=== PATIENT | male | born 1945 | race Caucasian/White ===

== ENCOUNTER 2018-03-18 09:51 | Outpatient (CLI) | payer MEDICARE, MEDICAID, SELFPAY ==
[2018-03-18 10:31] LABS: Abs Immature Grans 0.03 k/cumm (0.0-0.09); Absolute Basophil Count 0.02 k/cumm (0.0-0.2); Absolute Eosinophil Count 0.14 k/cumm (0.0-0.7); Absolute Lymphocyte Count 0.44 k/cumm (1.2-3.4); Absolute Monocyte Count 0.49 k/cumm (0.11-0.7); Absolute Neutrophil Count 3.84 k/cumm (1.2-6.7); Basophils % 0.4; Eosinophils % 2.8; HGB 11.1 g/dL (13.5-17.5); Immature Grans % 0.6; Lymphocytes % 8.9; Mean Corp. HGB Concentration 32.6 g/dL (32.0-36.0); Mean Corpuscular Hemoglobin 34.3 pg (27.0-33.0); Mean Corpuscular Volume 104.9 fL (80-95); Mean Platelet Volume 9.2 fL (8.0-11.0); Monocytes % 9.9; Neutrophils % 77.4; Platelet Count 110 x1000/uL (130-400); RBC 3.24 m/cumm (4.50-6.00); RBC Distribution Width 15.1 % (11.8-14.1); White Blood Cell Count 4.96 k/cumm (4.4-10.8)
[2018-03-18 11:42] LABS: ALT 40 U/L (12-78); AST 36 U/L (15-37); Albumin 2.9 g/dL (3.4-5.0); Alkaline Phosphatase 168 U/L (46-116); Anion Gap 3.9 mmol/L (3-11); BUN 8 mg/dL (7-18); Bilirubin, Total 0.3 mg/dL (0.2-1.0); CO2 32.1 mmol/L (21.0-32.0); CREATININE 0.67 mg/dL (0.70-1.30); Calcium 8.6 mg/dL (8.5-10.1); Chloride 104 mmol/L (98-107); Glucose 84 mg/dL (70-100); Potassium 4.6 mmol/L (3.5-5.1); Sodium 140 mmol/L (136-145)
== END 2018-03-18 10:11 ==
PROVIDERS: Visit Provider Internal Medicine Medical Oncology
DX: C34.92 Malignant neoplasm of unspecified part of left bronchus or lung (principal)
CPT/HCPCS: 36415; 80053; 85025

== ENCOUNTER 2018-04-02 14:19 | Outpatient (CLI) | payer MEDICARE, MEDICAID, SELFPAY ==
[2018-04-02 14:47] LABS: Abs Immature Grans 0.02 k/cumm (0.0-0.09); Absolute Basophil Count 0.02 k/cumm (0.0-0.2); Absolute Eosinophil Count 0.08 k/cumm (0.0-0.7); Absolute Lymphocyte Count 0.38 k/cumm (1.2-3.4); Absolute Monocyte Count 0.76 k/cumm (0.11-0.7); Absolute Neutrophil Count 5.68 k/cumm (1.2-6.7); Basophils % 0.3; Eosinophils % 1.2; HCT 32.7 % (40.0-50.0); Immature Grans % 0.3; Lymphocytes % 5.5; Mean Corp. HGB Concentration 33.6 g/dL (32.0-36.0); Mean Corpuscular Hemoglobin 34.5 pg (27.0-33.0); Mean Corpuscular Volume 102.5 fL (80-95); Mean Platelet Volume 8.8 fL (8.0-11.0); Neutrophils % 81.7; Platelet Count 166 x1000/uL (130-400); RBC 3.19 m/cumm (4.50-6.00); RBC Distribution Width 15.2 % (11.8-14.1); White Blood Cell Count 6.94 k/cumm (4.4-10.8)
[2018-04-02 14:58] LABS: ALT 20 U/L (12-78); AST 28 U/L (15-37); Albumin 2.6 g/dL (3.4-5.0); Alkaline Phosphatase 176 U/L (46-116); Anion Gap 8.2 mmol/L (3-11); BUN 6 mg/dL (7-18); Bilirubin, Total 0.3 mg/dL (0.2-1.0); CO2 27.8 mmol/L (21.0-32.0); CREATININE 0.66 mg/dL (0.70-1.30); Calcium 8.7 mg/dL (8.5-10.1); Chloride 99 mmol/L (98-107); Glucose 97 mg/dL (70-100); Sodium 135 mmol/L (136-145); Total Protein 6.6 g/dL (6.4-8.2)
== END 2018-04-02 14:39 ==
PROVIDERS: Visit Provider Nurse Practitioner Family
DX: C34.10 Malignant neoplasm of upper lobe, unspecified bronchus or lung (principal)
CPT/HCPCS: 36415; 80053; 85025

== ENCOUNTER 2018-04-15 10:12 | Outpatient (CLI) | payer MEDICARE, MEDICAID, SELFPAY ==
[2018-04-15 10:46] LABS: Abs Immature Grans 0.01 k/cumm (0.0-0.09); Absolute Basophil Count 0.03 k/cumm (0.0-0.2); Absolute Lymphocyte Count 0.43 k/cumm (1.2-3.4); Absolute Monocyte Count 0.63 k/cumm (0.11-0.7); Basophils % 0.7; Eosinophils % 2.4; HCT 32.1 % (40.0-50.0); HGB 10.7 g/dL (13.5-17.5); Immature Grans % 0.2; Lymphocytes % 10.3; Mean Corp. HGB Concentration 33.3 g/dL (32.0-36.0); Mean Corpuscular Hemoglobin 33.9 pg (27.0-33.0); Mean Corpuscular Volume 101.6 fL (80-95); Mean Platelet Volume 9.2 fL (8.0-11.0); Monocytes % 15.1; Neutrophils % 71.3; Platelet Count 214 x1000/uL (130-400); RBC 3.16 m/cumm (4.50-6.00); RBC Distribution Width 14.8 % (11.8-14.1); White Blood Cell Count 4.16 k/cumm (4.4-10.8)
[2018-04-15 10:48] LABS: Absolute Neutrophil Count 2.97 k/cumm (1.2-6.7)
[2018-04-15 12:15] LABS: ALT 19 U/L (12-78); AST 36 U/L (15-37); Albumin 2.7 g/dL (3.4-5.0); Alkaline Phosphatase 142 U/L (46-116); BUN 6 mg/dL (7-18); Bilirubin, Total 0.3 mg/dL (0.2-1.0); Calcium 8.5 mg/dL (8.5-10.1); Chloride 99 mmol/L (98-107); Glucose 147 mg/dL (70-100); LDH 185 U/L (85-227); Potassium 3.9 mmol/L (3.5-5.1); Sodium 135 mmol/L (136-145); Total Protein 6.1 g/dL (6.4-8.2)
[2018-04-16 13:12] LABS: FREE T4 1.12 ng/dL (0.76-1.46)
== END 2018-04-15 10:32 ==
DX: C34.92 Malignant neoplasm of unspecified part of left bronchus or lung (principal); E03.2 Hypothyroidism due to medicaments and other exogenous substances
CPT/HCPCS: 36415; 80053; 83615; 84439; 84443; 85025

== ENCOUNTER 2018-04-19 09:21 | Emergency (ER) | payer MEDICARE, MEDICAID, SELFPAY ==
[2018-04-19] VITALS (7 sets, daily range): BP systolic 114–142; BP diastolic 51–57; PULSE 91–105; RESP 20; TEMP 36.7; O2SAT 96–98
--- NOTE | 2018-04-19 09:26 | DI.CT_ITS ---
SYMPTOMS/DIAGNOSIS: SHORTNESS OF BREATH, LUNG CANCER, HEMOPTYSIS CHEST CT: CT angiography was performed with multi slice acquisition and multi planar and 3D reconstruction. CT examination of the chest was performed with a bolus infusion of 100 cc of Omnipaque 350. Examination was compared with most recent previous chest CT of 04/10/17. The patient has a history of left lung carcinoma. Images obtained through the upper abdomen show unremarkable appearance of visualized portions of the liver, spleen, adrenals and pancreas. There is no evidence of pulmonary embolic disease. No thoracic aortic aneurysm or dissection. There is a new moderate-sized left pleural effusion and there is a left hilar mass, which was not present on the previous examination and which now measures about 5 x 7 cm in diameter on transaxial imaging. Slight increased prominence of central mediastinal lymph nodes noted adjacent to the left mainstem bronchus, but these measure maximum diameter of about 7 mm. AP window nodes appear fairly stable and measure up to about 1 cm in diameter. A right upper lobe pulmonary radiodensity which is fairly well circumscribed appears unchanged from the previous examination. There is severe diffuse central lobular emphysema. No gross supraclavicular or axillary adenopathy seen. CONCLUSION: Findings consistent with progression/recurrent lung carcinoma on the left. No evidence of pulmonary embolic disease.
--- NOTE | 2018-04-19 09:30 | W.ED.GENAD ---
Discharge Plan Disposition Patient Disposition: ADINA MOTA ([facility]) Discharge Details Chief Complaint: SOB Clinical Impression: Hemoptysis, Lung cancer, COPD (chronic obstructive pulmonary disease), Generalized weakness Reason For Visit: RYANN Primary Care Provider: Rosaura,Local ED Provider: Asher Vargas Home Meds and New Rx's Prescriptions: No Action aspirin 81 MG tablet,chewable 81 mg PO DAILY RF: 0 atorvastatin [Lipitor] 40 MG tablet 40 mg PO DAILY RF: 0 lisinopril 20 MG tablet 20 mg PO DAILY RF: 0 tamsulosin 0.4 MG capsule 0.4 mg PO BID RF: 0 amlodipine 10 MG tablet 10 mg PO DAILY RF: 0 pantoprazole 40 MG tablet,delayed release (DR/EC) 40 mg PO DAILY RF: 0 ferrous sulfate 325 MG tablet 325 mg PO DAILY RF: 0 Combivent 200 PUFF aerosol 2 puff Inhalation .[id number] PRNRF: 0 doxazosin 2 MG tablet 2 mg PO DAILY RF: 0 escitalopram oxalate [Lexapro] 10 MG tablet 10 mg PO DAILY RF: 0 phenylephrine HCl [Miguel-Synephrine (phenylephrine)] 15 ML spray,non-aerosol 1 spray IN PRN PRNRF: 0 Spiriva with HandiHaler 18 MCG capsule, w/inhalation device 1 cap Inhalation DAILY RF: 0 Symbicort 10.2 GM HFA aerosol inhaler 2 puff Inhalation BID RF: 0 cyclobenzaprine 5 MG tablet 5 mg PO HS RF: 0 Discharge Data Discharge Date/Time-TO BE ENTERED AT DEPARTURE: 04/19/18 14:41 Medical Decision Making 9:45 --73-year-old male with history of COPD on 3.5L home 02, cirrhosis, lung cancer on palliative chemo, here with generalized weakness and hemoptysis. ECG reviewed and interpreted by me: Sinus rhythm 96 bpm, normal axis, poor R wave progression, nondiagnostic. I was able to retrieve and review outside hospital records: I reviewed progress note from [facility] dated 04/16/2018 which notes history of squamous cell carcinoma of the lingula diagnosed 10/2016 and treated with radiation therapy, found to have recurrent lingular lesion most likely representing recurrence of his squamous cell carcinoma 10/2017, now stage IIb, not a surgical candidate due to severe oxygen dependent COPD, tolerating cycles of chemotherapy, receiving fourth cycle during that visit, was complaining of some back discomfort. Patient is noted to be former smoker. Also has past medical history as noted prostate cancer, penile cancer, former smoker, chronic respiratory failure with hypoxia. Patient had a PET CT scan on 11/24/2017 that revealed intensely hypermetabolic focus in the left hilar region highly concerning for recurrent malignancy. Coarsened and patchy opacities in the left lung related to radiation fibrosis. Plan to treat with duoneb and solumedrol IV. Will CT chest to assess for PE vs increased tumor burden and erosion vs other. -- Labs reviewed and non diagnostic. 11:30 --CT of the chest interpreted by radiology: Left hilar mass, atelectasis, left pleural effusion moderate, no pulmonary embolism. Patient reassessed, he continues to have intermittent light hemoptysis. Blood pressure is low normal with a systolic of 97. His heart rate is low 100s. He is saturating well and in no respitory distress on 3.5L [place] O2. 11:49 -- Spoke with Dr. Hoffman at [facility] who notes would be happy to accept in transfer but no beds available. 13:20 -- Spoke with Dr. Polo at [facility] who notes [facility] full and unable to accept transfer. 14:00 -- Spoke with Dr. Hernández, [facility] hospitalist, who feels pulmonary consult warranted and no pulm available. Spoke again with Dr. Polo who will accept with Dr. Daniels transfer to [facility] ED. 14:20 -- Patient stable at time of transfer. Patient consents to transfer. I spoke with the seam hammerer about the case and they are comfortable with transport. HPI General Mode of arrival: ambulatory. Date/Time Provider Initiated Documentation: 04/19/18 09:26. Limitations to Documentation: no limitations. Information obtained by: patient and EMS. HPI Narrative: 73-year-old male with history of stage IV COPD, lung cancer on chemo therapy, cirrhosis of the liver, here with chief complaint of weakness. Patient notes generalized weakness worsening over the past day. Now moderate to severe. Symptoms are worse with exertion. This morning patient had episode of hemoptysis. He has not had hemoptysis in the past. Denies associated chest pain at this time. No shortness of breath at rest on oxygen. Related Data Home Medications Medication Instructions Recorded Confirmed Combivent 2 puff INHALATION .[id number] PRN 10/04/16 04/19/18 Spiriva with HandiHaler 1 cap INHALATION DAILY 10/04/16 04/19/18 Symbicort 2 puff INHALATION BID 10/04/16 04/19/18 amlodipine 10 mg PO DAILY 10/04/16 04/19/18 aspirin 81 mg PO DAILY 10/04/16 04/19/18 atorvastatin [Lipitor] 40 mg PO DAILY 10/04/16 04/19/18 doxazosin 2 mg PO DAILY 10/04/16 04/19/18 escitalopram oxalate [Lexapro] 10 mg PO DAILY 10/04/16 04/19/18 ferrous sulfate 325 mg PO DAILY 10/04/16 04/19/18 lisinopril 20 mg PO DAILY 10/04/16 04/19/18 pantoprazole 40 mg PO DAILY 10/04/16 04/19/18 phenylephrine HCl [Miguel-Synephrine 1 spray IN PRN PRN 10/04/16 01/17/17 (phenylephrine)] tamsulosin 0.4 mg PO BID 10/04/16 04/19/18 cyclobenzaprine 5 mg PO HS 11/30/16 04/19/18 Allergies Allergy/AdvReac Type Severity Reaction Status Date / Time No Known Allergies Allergy Unverified 01/17/17 09:32 Review of Systems Review of Systems All systems reviewed & are unremarkable except as noted in HPI and below Constitutional Denies fever(s) Cardiovascular Reports dyspnea Respiratory Reports cough (chronic), Reports hemoptysis and Reports dyspnea Gastrointestinal Denies vomiting [facility] Medical History Cirrhosis (Acute) COPD (chronic obstructive pulmonary disease) (Chronic) Lung cancer (Chronic) Social History Smoking and Tabacco status: Former Tobacco Use Exam Const General: cooperative, comfortable and no acute distress HENMT Head: normocephalic and atraumatic Mouth: moist mucous membranes Eyes Conjunctivae: normal conjunctivae Sclera: normal sclerae EOM: EOM intact bilaterally Neck Neck: trachea midline and supple Resp Effort & Inspection: not able to speak in complete sentences, not labored and no tripod positioning Auscultation: diminished lung sounds bilaterally, no rales, no rhonchi and no wheezes Cardio Jugular venous pressure: no JVD Rate: regular rate and not tachycardic Rhythm: regular rhythm GI Palpation: soft, not firm, no guarding, no masses, not rigid and nontender Skin General skin exam: no rashes or lesions noted Neuro General: alert, awake, oriented x3 and tone normal Extrem General: no edema Psych Appearance: grossly normal Mental Status: mental status grossly normal Speech and Movement: speech and movement normal
--- NOTE | 2018-04-19 09:50 | ED.GENADUL_ITS ---
Discharge Plan Disposition Patient Disposition: ADINA MOTA ([facility]) Discharge Details Chief Complaint: SOB Clinical Impression: Hemoptysis, Lung cancer, COPD (chronic obstructive pulmonary disease), Generalized weakness Reason For Visit: RYANN Primary Care Provider: Rosaura,Local ED Provider: Asher Vargas Home Meds and New Rx's Prescriptions: No Action aspirin 81 MG tablet,chewable 81 mg PO DAILY RF: 0 atorvastatin [Lipitor] 40 MG tablet 40 mg PO DAILY RF: 0 lisinopril 20 MG tablet 20 mg PO DAILY RF: 0 tamsulosin 0.4 MG capsule 0.4 mg PO BID RF: 0 amlodipine 10 MG tablet 10 mg PO DAILY RF: 0 pantoprazole 40 MG tablet,delayed release (DR/EC) 40 mg PO DAILY RF: 0 ferrous sulfate 325 MG tablet 325 mg PO DAILY RF: 0 Combivent 200 PUFF aerosol 2 puff Inhalation .[id number] PRNRF: 0 doxazosin 2 MG tablet 2 mg PO DAILY RF: 0 escitalopram oxalate [Lexapro] 10 MG tablet 10 mg PO DAILY RF: 0 phenylephrine HCl [Miguel-Synephrine (phenylephrine)] 15 ML spray,non-aerosol 1 spray IN PRN PRNRF: 0 Spiriva with HandiHaler 18 MCG capsule, w/inhalation device 1 cap Inhalation DAILY RF: 0 Symbicort 10.2 GM HFA aerosol inhaler 2 puff Inhalation BID RF: 0 cyclobenzaprine 5 MG tablet 5 mg PO HS RF: 0 Discharge Data Discharge Date/Time-TO BE ENTERED AT DEPARTURE: 04/19/18 14:41 Medical Decision Making 9:45 --73-year-old male with history of COPD on 3.5L home 02, cirrhosis, lung cancer on palliative chemo, here with generalized weakness and hemoptysis. ECG reviewed and interpreted by me: Sinus rhythm 96 bpm, normal axis, poor R wave progression, nondiagnostic. I was able to retrieve and review outside hospital records: I reviewed progress note from [facility] dated 04/16/2018 which notes history of squamous cell carcinoma of the lingula diagnosed 10/2016 and treated with radiation therapy, found to have recurrent lingular lesion most likely representing recurrence of his squamous cell carcinoma 10/2017, now stage IIb, not a surgical candidate due to severe oxygen dependent COPD, tolerating cycles of chemotherapy, receiving fourth cycle during that visit, was complaining of some back discomfort. Patient is noted to be former smoker. Also has past medical history as noted prostate cancer, penile cancer, former smoker, chronic respiratory failure with hypoxia. Patient had a PET CT scan on 11/24/2017 that revealed intensely hypermetabolic focus in the left hilar region highly concerning for recurrent malignancy. Coarsened and patchy opacities in the left lung related to radiation fibrosis. Plan to treat with duoneb and solumedrol IV. Will CT chest to assess for PE vs increased tumor burden and erosion vs other. -- Labs reviewed and non diagnostic. 11:30 --CT of the chest interpreted by radiology: Left hilar mass, atelectasis, left pleural effusion moderate, no pulmonary embolism. Patient reassessed, he continues to have intermittent light hemoptysis. Blood pressure is low normal with a systolic of 97. His heart rate is low 100s. He is saturating well and in no respitory distress on 3.5L [place] O2. 11:49 -- Spoke with [place]. Hoffman [place] [facility] who notes would be happy to accept in transfer but no beds available. 13:20 -- Spoke with Dr. Polo at [facility] who notes [facility] full and unable to accept transfer. 14:00 -- Spoke with Dr. Hernández, [facility] hospitalist, who feels pulmonary consult warranted and no pulm available. Spoke again with Dr. Polo who will accept with Dr. Daniels transfer to [facility] ED. 14:20 -- Patient stable at time of transfer. Patient consents to transfer. I spoke with the copy messenger about the case and they are comfortable with transport. HPI General Mode of arrival: ambulatory . Date/Time Provider Initiated Documentation: 04/19/18 09:26 . Limitations to Documentation: no limitations . Information obtained by: patient and EMS . HPI Narrative: 73-year-old male with history of stage IV COPD, lung cancer on chemo therapy, cirrhosis of the liver, here with chief complaint of weakness. Patient notes generalized weakness worsening over the past day. Now moderate to severe. Symptoms are worse with exertion. This morning patient had episode of hemoptysis. He has not had hemoptysis in the past. Denies associated chest pain at this time. No shortness of breath at rest on oxygen. Related Data Home Medications Medication Instructions Recorded Confirmed Combivent 2 puff INHALATION .[id number] PRN 10/04/16 04/19/18 Spiriva with HandiHaler 1 cap INHALATION DAILY 10/04/16 04/19/18 Symbicort 2 puff INHALATION BID 10/04/16 04/19/18 amlodipine 10 mg PO DAILY 10/04/16 04/19/18 aspirin 81 mg PO DAILY 10/04/16 04/19/18 atorvastatin [Lipitor] 40 mg PO DAILY 10/04/16 04/19/18 doxazosin 2 mg PO DAILY 10/04/16 04/19/18 escitalopram oxalate [Lexapro] 10 mg PO DAILY 10/04/16 04/19/18 ferrous sulfate 325 mg PO DAILY 10/04/16 04/19/18 lisinopril 20 mg PO DAILY 10/04/16 04/19/18 pantoprazole 40 mg PO DAILY 10/04/16 04/19/18 phenylephrine HCl [Miguel-Synephrine 1 spray IN PRN PRN 10/04/16 01/17/17 (phenylephrine)] tamsulosin 0.4 mg PO BID 10/04/16 04/19/18 cyclobenzaprine 5 mg PO HS 11/30/16 04/19/18 Allergies Allergy/AdvReac Type Severity Reaction Status Date / Time No Known Allergies Allergy Unverified 01/17/17 09:32 Review of Systems Review of Systems All systems reviewed & are unremarkable except as noted in HPI and below Constitutional Denies fever(s) Cardiovascular Reports dyspnea Respiratory Reports cough (chronic), Reports hemoptysis and Reports dyspnea Gastrointestinal Denies vomiting [facility] Medical History Cirrhosis (Acute) COPD (chronic obstructive pulmonary disease) (Chronic) Lung cancer (Chronic) Social History Smoking and Tabacco status: Former Tobacco Use Exam Const General: cooperative, comfortable and no acute distress HENMT Head: normocephalic and atraumatic Mouth: moist mucous membranes Eyes Conjunctivae: normal conjunctivae Sclera: normal sclerae EOM: EOM intact bilaterally Neck Neck: trachea midline and supple Resp Effort & Inspection: not able to speak in complete sentences, not labored and no tripod positioning Auscultation: diminished lung sounds bilaterally, no rales, no rhonchi and no wheezes Cardio Jugular venous pressure: no JVD Rate: regular rate and not tachycardic Rhythm: regular rhythm GI Palpation: soft, not firm, no guarding, no masses, not rigid and nontender Skin General skin exam: no rashes or lesions noted Neuro General: alert, awake, oriented x3 and tone normal Extrem General: no edema Psych Appearance: grossly normal Mental Status: mental status grossly normal Speech and Movement: speech and movement normal
[2018-04-19 10:05] LABS: Abs Immature Grans 0.02 k/cumm (0.0-0.09); Absolute Basophil Count 0.01 k/cumm (0.0-0.2); Absolute Eosinophil Count 0.06 k/cumm (0.0-0.7); Absolute Lymphocyte Count 0.42 k/cumm (1.2-3.4); Absolute Monocyte Count 0.51 k/cumm (0.11-0.7); Absolute Neutrophil Count 2.77 k/cumm (1.2-6.7); Basophils % 0.3; Eosinophils % 1.6; HCT 32.8 % (40.0-50.0); HGB 10.7 g/dL (13.5-17.5); Immature Grans % 0.5; Lymphocytes % 11.1; Mean Corp. HGB Concentration 32.6 g/dL (32.0-36.0); Mean Corpuscular Hemoglobin 32.7 pg (27.0-33.0); Mean Corpuscular Volume 100.3 fL (80-95); Mean Platelet Volume 9.4 fL (8.0-11.0); Monocytes % 13.5; Platelet Count 179 x1000/uL (130-400); RBC 3.27 m/cumm (4.50-6.00); RBC Distribution Width 14.6 % (11.8-14.1); White Blood Cell Count 3.79 k/cumm (4.4-10.8)
[2018-04-19 10:20] LABS: ALT 18 U/L (12-78); AST 33 U/L (15-37); Albumin 2.6 g/dL (3.4-5.0); Alkaline Phosphatase 140 U/L (46-116); Anion Gap 2.8 mmol/L (3-11); BUN 7 mg/dL (7-18); Bilirubin, Total 0.2 mg/dL (0.2-1.0); CO2 34.2 mmol/L (21.0-32.0); CREATININE 0.57 mg/dL (0.70-1.30); Calcium 8.7 mg/dL (8.5-10.1); Chloride 100 mmol/L (98-107); Glucose 103 mg/dL (70-100); Potassium 4.2 mmol/L (3.5-5.1); Sodium 137 mmol/L (136-145); Total Protein 6.7 g/dL (6.4-8.2); Troponin I < 0.02 ng/mL (0.00-0.06)
[2018-04-19] MEDS: Normal Saline Flush 10 ML SYR IVP (11:05)
[2018-04-19] MEDS: methylPREDNISolone SUCC 125 MG VIAL IVP (11:08)
[2018-04-19] MEDS: Albuterol/Ipratropium 3 ML UPD VIAL UPD (11:08)
[2018-04-19] MEDS: Omnipaque 350 MG/ML 100 ML BTL IV (11:13)
--- NOTE | 2018-04-19 11:45 | NUR.NOTE ---
Nursing Note: pt self cath s and did so at this time and 450 ml out with pt Alvaro arizmendi
[2018-04-19 11:59] LABS: NT-proBNP 138 pg/mL
[2018-04-19 14:47] LABS: Prothrombin Time 10.3 sec (9.3-11.0)
== END 2018-04-19 14:41 | disposition short-term general hospital (02) ==
PROVIDERS: Emergency Provider Student in an Organized Health Care Education/Training Program
DX: R04.2 Hemoptysis (principal); J44.9 Chronic obstructive pulmonary disease, unspecified; R53.1 Weakness; C34.90 Malignant neoplasm of unspecified part of unspecified bronchus or lung; Z99.81 Dependence on supplemental oxygen; Z92.21 Personal history of antineoplastic chemotherapy
CPT/HCPCS: 36415; 71275; 80053; 86850; 86900; 86901; 93005; 94640; 96374; 99285; 83880; 84484; 85025; 85610; 93010; 99284; J2930; J3490; J7620

== ENCOUNTER 2018-06-12 18:14 | Outpatient (REF) | payer MEDICARE, MEDICAID, SELFPAY ==
[2018-06-12 19:34] LABS: Bilirubin Negative (Negative); Blood Negative (Negative); Clarity Clear; Glucose Negative (Negative); Ketones Trace mg/dL (Negative); Leukocyte Esterase Trace (Negative); Nitrite Negative (Negative); Specific Gravity 1.015 (1.005-1.025); Urobilinogen 0.2 EU/dL (Up TO 0.2); pH 5.5 (5-8)
[2018-06-12 20:00] LABS: Epithelial Cells Few HPF (Negative); Other Cells Few Spermatozoa (Negative); RBC Negative (0-2); WBC 20-50 HPF (0-5)
[2018-06-12 20:01] LABS: Bacteria Negative HPF (Negative); C & S Indicated? Yes; Casts Negative LPF (Negative); Crystals Negative HPF (Negative); Mucus Negative (Negative)
== END 2018-06-12 18:34 ==
LOC: LBN 18:14
PROVIDERS: Visit Provider Family Medicine
DX: N39.0 Urinary tract infection, site not specified (principal)
CPT/HCPCS: 81003; 81015; 87086